=== PATIENT | male | born 1965 | race Caucasian/White ===

== ENCOUNTER 2020-03-21 08:54 | Emergency (ER) | payer BC ==
[~2020-03-21] VITALS: Ht 160 cm; Wt 65.9 kg
[2020-03-21 09:24] VITALS: BP 131/92
== END 2020-03-21 10:20 | disposition home or self-care (01) ==
LOC: ER 08:56
DX: U07.1 COVID-19 (principal)
CPT/HCPCS: 36415; 87635; 99283